=== PATIENT | female | born 1985 | race American Indian/Alaskan Native ===

== ENCOUNTER 2020-06-15 06:27 | Emergency (ER) | payer SELFPAY ==
[2020-06-15 06:33] VITALS: BP 150/63
--- NOTE | 2020-06-15 07:12 | Emergency Department Report ---
ED ENT HPI - General Chief complaint: Sore Throat Stated complaint: THROAT PAIN/RUNNING NOSE Time Seen by Provider: 06/15/20 06:50 Source: patient Mode of arrival: Ambulatory Limitations: No Limitations - History of Present Illness Initial comments: The patient was evaluated in the emergency department for symptoms described in the history of present illness. He/she was evaluated in the context of the global COVID-19 pandemic, which necessitated consideration that the patient might be at risk for infection with the virus that causes COVID-19. Insti tutional protocols and algorithms that pertain to the evaluation of patients at risk for COVID-19 are in a state of rapid change based on information released by regulatory bodies including the CDC and federal and state organizations. These policies and algorithms were followed during the patient's care in the emergency department. Please note that these policies, procedures and recommendations changed on a rapid basis. 35-year-old -[place] female presents to the emergency room for a 1 day history of sore throat and nasal congestion. Patient denies any cough fever shortness of breath chest pain difficulty swallowing change of vision fever or chills. Patient states that she has a history of allergic rhinitis and is currently taking Zyrtec's that she has been on for approximately a year. Patient reports a past medical history of anemia and currently takes iron Gummies but not as she is supposed to. She does report she has a history of tachycardic. Patient denies any headache but does complain of rhinorrhea. She reports she has yellow nasal discharge in the morning. Onset/Timin -: days(s) Location: throat ([place]) Severity: mild Severity scale (0 -10): 4 Consistency: intermittent Improves with: none Worsens with: none - Related Data Previous Rx's Medication Instructions Recorded Last Taken Type Loratadine/Pseudoephedrine 1 each PO QDAY #30 tab.er.24h 06/15/20 Unknown Rx [Loratadine-D 24Hr Tablet] Allergies Allergy/AdvReac Type Severity Reaction Status Date / Time No Known Allergies Allergy Unverified 06/15/20 06:28 ED Dental HPI - General Chief complaint: Sore Throat Stated complaint: THROAT PAIN/RUNNING NOSE Time Seen by Provider: 06/15/20 06:50 Source: patient Mode of arrival: Ambulatory Limitations: No Limitations - Related Data Previous Rx's Medication Instructions Recorded Last Taken Type Loratadine/Pseudoephedrine 1 each PO QDAY #30 tab.er.24h 06/15/20 Unknown Rx [Loratadine-D 24Hr Tablet] Allergies Allergy/AdvReac Type Severity Reaction Status Date / Time No Known Allergies Allergy Unverified 06/15/20 06:28 ED Review of Systems ROS: Stated complaint: THROAT PAIN/RUNNING NOSE Other details as noted in HPI Comment: All other systems reviewed and negative ED Past Medical Hx - Past Medical History Previous Medical History?: Yes Additional medical history: anemia, inappropriate tachycardia - Surgical History Additional Surgical History: , D&C - Social History Smoking Status: Never Smoker - Medications Home Medications: Home Medications Medication Instructions Recorded Confirmed Last Taken Type Loratadine/Pseudoephedrine 1 each PO QDAY #30 tab.er.24h 06/15/20 Unknown Rx [Loratadine-D 24Hr Tablet] ED Physical Exam - General Limitations: No Limitations General appearance: alert, in no apparent distress - Head Head exam: Present: atraumatic, normocephalic - Eye Eye exam: Present: normal appearance, PERRL. Absent: conjunctival injection, periorbital swelling, periorbital tenderness - ENT ENT exam: Present: normal exam, normal orophraynx, mucous membranes moist, normal external ear exam - Expanded ENT Exam Expanded Mouth exam: Present: normal external inspection, tongue normal Throat exam: Positive: normal inspection. Negative: tonsillar erythema, to nsillomegaly, tonsillar exudate - Neck Neck exam: Present: tenderness, full ROM, lymphadenopathy - Respiratory Respiratory exam: Present: normal lung sounds bilaterally. Absent: respiratory distress, accessory muscle use - Cardiovascular Cardiovascular Exam: Present: regular rate - Neurological Exam Neurological exam: Present: alert, oriented X3, normal gait - Psychiatric Psychiatric exam: Present: normal affect, normal mood. Absent: depressed, agitated - Skin Skin exam: Present: warm, dry, intact, normal color. Absent: rash ED Course Vital Signs 06/15/20 06/15/20 06:28 07:19 Temperature 98.1 F 98.1 F Pulse Rate 107 H 107 H Respiratory 16 16 Rate Blood Pressure 150/63 Blood Pressure 150/63 [Left] O2 Sat by Pulse 97 100 Oximetry ED Medical Decision Making - Medical Decision Making 35-year-old -[place] female presents to the emergency room for a 1 day history of sore throat and nasal congestion. Patient denies any cough fever shortness of breath chest pain difficulty swallowing change of vision fever or chills. Patient states that she has a history of allergic rhinitis and is currently taking Zyrtec's that she has been on for approximately a year. Patient reports a past medical history of anemia and currently takes iron Gummies but not as she is supposed to. She does report she has a history of tachycardic. Patient denies any headache but does complain of rhinorrhea. She reports she has yellow nasal discharge in the morning. I discussed with patient that the yellowish cloudy mucus in the morning is normal as mucus is set up in the nasal packs of throughout the night. Once she starts to blow and clear that out she continues to have clear discharge. I discussed with patient she is not a candidate for antibiotics as she is on he has a 1 day history of symptoms. I discussed with patient she may would like to try switching her antihistamine to Claritin-D. I also discussed with patient that she needs to take her iron increase her water intake. Discussed with patient if she starts to have any chest discomfort to discontinue medication. Instructed patient to follow-up with her primary care provider. Critical care attestation.: If time is entered above; I have spent that time in minutes in the direct care of this critically ill patient, excluding procedure time. ED Disposition Clinical Impression: Allergic rhinitis, History of tachycardia Disposition: [id number] TO HOME OR SELFCARE Is pt being admited?: No Does the pt Need Aspirin: No Condition: Stable Instructions: Allergic Rhinitis, Adult, [id number] Additional Instructions: Please take medication as prescribed. Increase your water intake while taking this medication. Follow-up with your primary care provider symptoms persist or gets worse. Prescriptions: Loratadine/Pseudoephedrine [Loratadine-D 24Hr Tablet] 1 each PO QDAY #30 tab.er.24h Forms: Work/School Release Form(ED)
== END 2020-06-15 07:19 | disposition home or self-care (01) ==
LOC: ED 06:27
DX: J30.9 Allergic rhinitis, unspecified (principal); R00.0 Tachycardia, unspecified; Z79.899 Other long term (current) drug therapy
CPT/HCPCS: 99282